=== PATIENT | female | born 1950 | race Caucasian/White ===

== ENCOUNTER 2019-08-16 18:41 | Emergency (ER) | payer MEDICARE ==
--- NOTE | 2019-08-16 20:21 | EDM.PDOC ---
ED HPI GENERAL MEDICAL PROBLEM - General Chief Complaint: Flank Pain Stated Complaint: LEFT SIDE PAIN,NAUSEA Time Seen by Provider: 08/16/19 19:15 Source of Information: Reports: Patient History Limitations: Reports: No Limitations - History of Present Illness INITIAL COMMENTS - FREE TEXT/NARRATIVE: pt was found to have pain in her left flank area. This has been on and off for the past few days. By the time she arrived her her pain was better/ Onset: Sudden, Other (pain started suddenly today. ) Duration: Hour(s): Location: Reports: Abdomen, Back Associated Symptoms: Reports: No Other Symptoms denies pain Pain Score (Numeric/FACES): 0 - Related Data Allergies Allergy/AdvReac Type Severity Reaction Status Date / Time lisinopril Allergy Cough Verified 08/16/19 19:24 Home Meds: Home Meds Levothyroxine 125 mcg PO BEDTIME 08/16/19 [History] Losartan [Cozaar] 0 mg PO DAILY 08/16/19 [History] Meloxicam 0 mg PO BEDTIME 08/16/19 [History] amLODIPine [Norvasc] 0 mg PO DAILY 08/16/19 [History] atorvaSTATin [Lipitor] 0 mg PO BEDTIME 08/16/19 [History] hydroCHLOROthiazide [Hydrochlorothiazide] 0 mg PO DAILY 08/16/19 [History] Past Medical History HEENT History: Reports: Cataract, Impaired Vision Cardiovascular History: Reports: High Cholesterol, Hypertension 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: Musculoskeletal History: Reports: Arthritis Neurological History: Reports: Vertigo Endocrine/Metabolic History: Reports: Other (See Below) Other Endocrine/Metabolic History: thyroid disease - Infectious Disease History Infectious Disease History: Reports: Chicken Pox - Past Surgical History HEENT Surgical History: Reports: Cataract Surgery Female Surgical History: Reports: Section Social & Family History - Tobacco Use Smoking Status *Q: Never Smoker Second Hand Smoke Exposure: No - Caffeine Use Caffeine Use: Reports: Coffee, Soda - Recreational Drug Use Recreational Drug Use: No ED ROS GENERAL - Review of Systems Review Of Systems: See Below Constitutional: Reports: No Symptoms HEENT: Reports: No Symptoms Respiratory: Reports: No Symptoms Cardiovascular: Reports: No Symptoms Endocrine: Reports: No Symptoms GI/Abdominal: Reports: Other (left flank pain) : Reports: Other ( difficulty voiding. ) Musculoskeletal: Reports: No Symptoms Skin: Reports: No Symptoms Neurological: Reports: No Symptoms ED EXAM, GI/ABD - Physical Exam Exam: See Below Text/Narrative:: pt arrived with a history of about 3 episodes of very severe flank pain. She states by the time she arrived here she was pain free. Exam Limited By: No Limitations General Appearance: Alert, No Apparent Distress, Anxious Ears: Normal TMs Nose: Normal Inspection Throat/Mouth: Normal Inspection Head: Atraumatic Neck: Normal Inspection Respiratory/Chest: No Respiratory Distress Cardiovascular: Regular Rate, Rhythm GI/Abdominal Exam: Soft, Non-Tender, Other (mild flank tenderness) Rectal (Female) Exam: Deferred Back Exam: CVA Tenderness (L) Extremities: Normal Inspection Neurological: Alert, Oriented, Normal Cognition Psychiatric: Anxious Course - Vital Signs Last Recorded V/S: Last Vital Signs Temp 37.5 C 08/16/19 19:28 Pulse 78 08/16/19 20:17 Resp 16 08/16/19 20:17 BP 131/63 08/16/19 20:17 Pulse Ox 98 08/16/19 20:17 - Orders/Labs/Meds Orders: Active Orders 24 hr Category Date Time Status CULTURE URINE [RM] Stat Lab 08/16/19 23:21 Ordered Labs: Laboratory Tests 08/16/19 08/16/19 08/16/19 Range/Units 19:44 19:45 19:45 WBC 12.4 H (4.5-11.0) K/uL RBC 4.61 (3.30-5.50) M/uL Hgb 12.5 (12.0-15.0) g/dL Hct 38.2 (36.0-48.0) % MCV 83 (80-98) fL MCH 27 (27-31) pg MCHC 33 (32-36) % Plt Count 333 (150-400) K/uL Neut % (Auto) 76 H (36-66) % Lymph % (Auto) 14 L (24-44) % [place] % (Auto) 7 H (2-6) % Eos % (Auto) 2 (2-4) % Baso % (Auto) 0 (0-1) % Sodium 139 L (140-148) mmol/L Potassium 3.4 L (3.6-5.2) mmol/L Chloride 102 (100-108) mmol/L Carbon Dioxide 29 (21-32) mmol/L Anion Gap 11.4 (5.0-14.0) mmol/L BUN 18 (7-18) mg/dL Creatinine 0.9 (0.6-1.0) mg/dL Est Cr Clr Drug Dosing 42.97 mL/min Estimated GFR (MDRD) > 60 (>60) Glucose 116 H (74-106) mg/dL Calcium 9.0 (8.5-10.1) mg/dL Total Bilirubin 0.3 (0.2-1.0) mg/dL AST 18 (15-37) U/L ALT 28 (12-78) U/L Alkaline Phosphatase 112 (46-116) U/L C-Reactive Protein (0.0-0.3) mg/dL Total Protein 7.7 (6.4-8.2) g/dL Albumin 3.4 (3.4-5.0) g/dL Globulin 4.3 H (2.3-3.5) g/dL Albumin/Globulin Ratio 0.8 L (1.2-2.2) Urine Color Yellow (YELLOW) Urine Appearance Slightly cloudy A (CLEAR) Urine pH 6.5 (5.0-8.0) Ur Specific [place] 1.020 (1.008-1.030) Urine Protein Negative (NEGATIVE) mg/dL Urine Glucose (UA) Negative (NEGATIVE) mg/dL Urine Ketones Negative (NEGATIVE) mg/dL Urine Occult Blood Moderate H (NEGATIVE) Urine Nitrite Negative (NEGATIVE) Urine Bilirubin Negative (NEGATIVE) Urine Urobilinogen 0.2 (0.2-1.0) EU/dL Ur Leukocyte Esterase Moderate H (NEGATIVE) Urine RBC 5-10 H (0-5) Urine WBC 40-50 H (0-5) Ur Epithelial Cells Rare Amorphous Sediment Not seen Urine Bacteria Few Urine Mucus Rare 05/19/20 Range/Units 19:45 WBC (4.5-11.0) K/uL RBC (3.30-5.50) M/uL Hgb (12.0-15.0) g/dL Hct (36.0-48.0) % MCV (80-98) fL MCH (27-31) pg MCHC (32-36) % Plt Count (150-400) K/uL Neut % (Auto) (36-66) % Lymph % (Auto) (24-44) % [place] % (Auto) (2-6) % Eos % (Auto) (2-4) % Baso % (Auto) (0-1) % Sodium (140-148) mmol/L Potassium (3.6-5.2) mmol/L Chloride (100-108) mmol/L Carbon Dioxide (21-32) mmol/L Anion Gap (5.0-14.0) mmol/L BUN (7-18) mg/dL Creatinine (0.6-1.0) mg/dL Est Cr Clr Drug Dosing mL/min Estimated GFR (MDRD) (>60) Glucose (74-106) mg/dL Calcium (8.5-10.1) mg/dL Total Bilirubin (0.2-1.0) mg/dL AST (15-37) U/L ALT (12-78) U/L Alkaline Phosphatase (46-116) U/L C-Reactive Protein 0.50 H (0.0-0.3) mg/dL Total Protein (6.4-8.2) g/dL Albumin (3.4-5.0) g/dL Globulin (2.3-3.5) g/dL Albumin/Globulin Ratio (1.2-2.2) Urine Color (YELLOW) Urine Appearance (CLEAR) Urine pH (5.0-8.0) Ur Specific [place] (1.008-1.030) Urine Protein (NEGATIVE) mg/dL Urine Glucose (UA) (NEGATIVE) mg/dL Urine Ketones (NEGATIVE) mg/dL Urine Occult Blood (NEGATIVE) Urine Nitrite (NEGATIVE) Urine Bilirubin (NEGATIVE) Urine Urobilinogen (0.2-1.0) EU/dL Ur Leukocyte Esterase (NEGATIVE) Urine RBC (0-5) Urine WBC (0-5) Ur Epithelial Cells Amorphous Sediment Urine Bacteria Urine Mucus Meds: Medications Discontinued Medications Generic Name Dose Route Start Last Admin Trade Name Freq PRN Reason Stop Dose Admin Ciprofloxacin 500 mg 08/16/19 23:10 08/16/19 23:16 Ciprofloxacin Hcl PO 08/16/19 23:11 500 mg ONETIME ONE Administration Tamsulosin HCl 0.4 mg 08/16/19 23:09 08/16/19 23:16 Flomax PO 08/16/19 23:10 0.4 mg ONETIME ONE Administration - Re-Assessments/Exams Free Text/Narrative Re-Assessment/Exam: 08/16/19 23:14 pt had a UA which showed both rbcs and wbcs. She had a cat scan of the abdoman which showed a 4 mm stone on the left near the bladder. It is a obstructing stone. Her urine also looks infected. She is visiting here from [facility]. Pt has remained pain free in The ER. She had some areas of increased density in the rt renal area. A Ultrasound was obtained which showed benign cyts present. Departure - Departure Time of Disposition: 23:17 Disposition: Home, Self-Care 01 Condition: Fair Clinical Impression: Left ureteral stone, UTI (urinary tract infection), Cyst of right kidney - Discharge Information Referrals: PCP,None [Primary Care Provider] - Forms: ED Department Discharge Care Plan Goals: push fluids, flomax .4 mg daily, cipro 500mg bid, torodol 10 mg q6h prn for pain. appt on Thursday with regular Dr in [facility]. strain all urine. sensd a copy of her labs, her US report and her cat scan with the pt top take to her regular Dr. Sepsis Event Note - Evaluation Sepsis Screening Result: No Definite Risk - Focused Exam Vital Signs: Vital Signs Temp Pulse Resp BP Pulse Ox 08/16/19 20:17 78 16 131/63 98 08/16/19 19:28 37.5 C 85 16 147/73 H 98 08/16/19 19:10 37.5 C 85 16 147/73 H 98 Date Exam was Performed: 08/16/19 Time Exam was Performed: 23:22 - My Orders Last 24 Hours: My Active Orders 08/16/19 23:21 CULTURE URINE [RM] Stat - Assessment/Plan Last 24 Hours: My Active Orders 08/16/19 23:21 CULTURE URINE [RM] Stat
--- NOTE | 2019-08-16 20:59 | CRLCT ---
INDICATION: Left-sided flank pain TECHNIQUE: Axial images were obtained from the diaphragm to the pubic symphysis. Reformats were obtained in the coronal and sagittal plane. IV Contrast: None Oral Contrast: None COMPARISON: None. FINDINGS: Lower chest: Unremarkable. Liver: Unremarkable. Normal in size and attenuation. No masses. Gallbladder and bile ducts: Cholelithiasis without gallbladder wall thickening or pericholecystic inflammation. Spleen: Unremarkable. Normal in size without mass. Pancreas: Unremarkable. No mass or inflammation. Adrenal glands: Unremarkable. No nodules. Kidneys: Nephrolithiasis with bilateral renal cysts as well as indeterminate mildly hyperdense lesion involving the right kidney measuring 10 millimeters. Follow-up outpatient renal ultrasound suggested for further characterization. There is mild left hydronephrosis which extends to the ureterovesicular junction where there is an obstructing 4 millimeter stone. Vasculature: Unremarkable. GI tract: No dilated loops of large or small intestine. Mild colonic diverticulosis. Pelvis: Unremarkable. Bones: Degenerative disc disease with grade 1 anterolisthesis L5-S1. Osteitis pubis. IMPRESSION: 1. Nephrolithiasis with mild left hydronephrosis and obstructing left ureterovesicular junction stone measuring 4 millimeters. 2. Other incidental findings as detailed above. Please note that all CT scans at this facility use dose modulation, iterative reconstruction, and/or weight-based dosing when appropriate to reduce radiation dose to as low as reasonably achievable. Dictated by Dallas Medeiros MD @ Aug 16 2019 8:52PM Signed by Dr. Dallas Medeiros @ Aug 16 2019 8:57PM
--- NOTE | 2019-08-16 22:45 | CRLUS ---
INDICATION: Indeterminate right renal lesion, possible cyst or solid lesion on CT. TECHNIQUE: Limited renal ultrasound performed with static images saved for review of the right kidney. COMPARISON: Abdomen and pelvis CT 08/16/2019 FINDINGS: Right Kidney: Size: 9.5 x 5.1 centimeters Cortical thickness 1.5 centimeters. Simple cyst at the lower pole of the kidney measuring 2.2 centimeters. 1.1 centimeter cyst at the lateral aspect of the kidney. No hydronephrosis. IMPRESSION: Limited renal ultrasound demonstrates 2 right renal cysts. The smaller simple cyst corresponds to the hyperdense lesion seen on CT scan and is a benign finding. No further follow-up required. Dictated by Dallas Medeiros MD @ Aug 16 2019 10:39PM Signed by Dr. Dallas Medeiros @ Aug 16 2019 10:43PM
[2019-08-16] MEDS ORDERED: Tamsulosin 0.4 MG Cap.ER PO ONE (23:09)
[2019-08-16] MEDS ORDERED: Ciprofloxacin 500 MG Tab PO ONE (23:10)
== END 2019-08-16 23:48 | disposition home or self-care (01) ==
LOC: JP.ED 18:41
DX: N13.2 Hydronephrosis with renal and ureteral calculous obstruction (principal); N39.0 Urinary tract infection, site not specified; N28.1 Cyst of kidney, acquired; E78.00 Pure hypercholesterolemia, unspecified; Z88.8 Allergy status to other drugs, medicaments and biological substances; M19.90 Unspecified osteoarthritis, unspecified site; Z79.899 Other long term (current) drug therapy
CPT/HCPCS: 36415; 74176; 76705; 80053; 81001; 85025; 86140; 87086; 99284; A9270; 99283